=== PATIENT | female | born 1970 | race Caucasian/White ===

== ENCOUNTER 2020-01-05 08:21 | Outpatient (NON) | payer OTHER, SELFPAY ==
[2020-01-08 01:48] LABS: SARS-CoV-2 RNA PCR Negative
== END 2020-01-05 08:22 ==
DX: R06.02 Shortness of breath (principal); Z20.828 Contact with and (suspected) exposure to other viral communicable diseases
CPT/HCPCS: 87635; C9803; U0003

== ENCOUNTER → 2022-06-24 11:28 | Outpatient (CLI) | payer OTHER, SELFPAY ==
--- NOTE | ~2022-06-24 | MR_ITS ---
MRI of the right knee Clinical history: Pain Technique: Coronal proton density and proton density-weighted images, sagittal proton-density and T2 fat-sat images, and axial proton-density fat-saturated images were acquired. Findings: Anterior and posterior cruciate ligaments are intact. There is mild soft tissue edema about the MCL. Suspected partial tearing of the meniscal femoral component of the deep portion of the MCL. Lateral collateral ligament complex is intact. Popliteus tendon is intact. Medial and lateral menisci are intact. There is mild chondromalacia along the medial femoral condyle. There is minimal chondromalacia the pa tellar apex. Bone marrow signals are unremarkable. Extensor mechanism is intact. There is edema of the quadriceps fat pad. There is a ganglion cyst post erior to the medial aspect of the distal femur. This measures 2.3 cm in maximum diameter. Impression: Probable grade 2 MCL injury, as detailed above. Edematous change of the quadriceps fat pad, which could reflect impingement. 2.3 cm ganglion cyst posterior to the distal femur. Reviewed, dictated and finalized at [facility]. Impression: Probable grade 2 MCL injury, as detailed above. Edematous change of the quadriceps fat pad, which could reflect impingement. 2.3 cm ganglion cyst posterior to the distal femur.
== END ==
PROVIDERS: PCP Registered Nurse; Visit Provider Orthopaedic Surgery
DX: M67.461 Ganglion, right knee (principal)
CPT/HCPCS: 73721

== ENCOUNTER 2022-06-28 09:05 | Outpatient (CLI) | payer OTHER, SELFPAY ==
--- NOTE | ~2022-06-28 | US_ITS ---
EXAMINATION:US venous doppler LE RT INDICATION:Leg swelling. Calf pain. TECHNIQUE: Multiple grayscale, color flow and Doppler images of the right lower extremity deep venous systems were obtained and reviewed. COMPARISON:Ultrasound dated 08/10/2010 FINDINGS: The common femoral, superficial femoral and popliteal veins demonstrate normal respiratory variation, augmentation and compressibility. Color flow is also seen within the posterior tibial, pe roneal, greater saphenous and profunda veins. IMPRESSION: 1: No lower extremity deep venous thrombosis. Reviewed, dictated and finalized at location B.
== END 2022-06-28 09:06 | disposition home or self-care (01) ==
PROVIDERS: PCP Registered Nurse; Visit Provider Orthopaedic Surgery
DX: R60.0 Localized edema (principal)
CPT/HCPCS: 93971

== ENCOUNTER 2022-10-18 18:48 | Emergency (ER) | payer OTHER, SELFPAY ==
[2022-10-18 18:59] VITALS: BP 124/70; PULSE 62; RESP 16; TEMP 36.6; O2SAT 100
--- NOTE | 2022-10-18 19:05 | ED.GENADULT ---
HPI - General Adult General Chief complaint: Skin/Abscess/Foreign Body Stated complaint: RT Upper Chest Irritation Time Seen by Provider: 10/18/22 19:05 Source: patient, RN notes reviewed and old records reviewed Mode of arrival: ambulatory Limitations: no limitations History of Present Illness HPI narrative: 52-year-old female presents to the [facility] with concerns over a surgical wound. Patient had basal cell removed from the right upper chest, sutures in place. States that she was at [facility] and had some skin cancer removed from the right upper chest. Sutures are intact. Has been applying Vaseline. Reports it being itchy Denies pain. No drainage. Related Data Home Medications Medication Instructions Recorded Confirmed glycopyrrolate 9 mcg-formoterol 2 puff inhalation BID 07/02/21 10/18/22 4.8 mcg HFA aerosol inhaler (BevesZindigo Aerosphere) amitriptyline 10 mg tablet 10 mg PO HS 10/18/22 10/18/22 Allergies Allergy/AdvReac Type Severity Reaction Status Date / Time No Known Allergies Allergy Verified 10/18/22 18:56 Review of Systems Review of Systems: All systems reviewed & are unremarkable except as noted in HPI and below Constitutional: Constitutional: Reports no additional constitutional complaints Eyes: Eyes: Reports no additional eye complaints ENT: Reports system reviewed and no additional complaints, except as documented Cardiovascular: Cardiovascular: Reports no additional cardiovascular complaints, Denies chest pain and Denies dyspnea Respiratory: Respiratory: Reports no additional respiratory complaints, Denies chest congestion, Denies cough and Denies dyspnea Gastrointestinal: Gastrointestinal: Reports no additional gastrointestinal complaints, Denies abdominal pain, Denies nausea and Denies vomiting Musculoskeletal: Musculoskeletal: Reports no additional musculoskeletal complaints Integumentary/Breasts: Skin/Breast: Reports as per HPI Neurologic: Reports system reviewed and no additional complaints, except as documented Psychiatric: Psychiatric: Reports no additional psychiatric complaints Allergic/Immunologic: Allergic/Immunologic: Reports no additional allergic/immunologic complaints [facility] Past Medical History Medical History Abnormal mammogram 03-02-2016 addtional imaging asymmetric left breast/ biopsy done 02/2018 Benign seeing at [facility] every 6 months/ 09/2019 wnl specialist will order Abnormal Pap smear of cervix 20+ years ago Acid reflux Adrenal cancer Asthma Ectopic (~1994) Encounter for IUD insertion 12/01/06 Mirena insertion 10/23/11 Mirena removal/insertion 01/29/17 Mirena removal/insertion--new IUD was removed, pt having pain Encounter for IUD removal 10/23/11 Mirena removal/insertion 01/29/17 Mirena removal/insertion--new IUD was removed, pt having pain Endometriosis 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 Gestational hypertension Herpes Miscarriage (~1996) Triplet gestation 2 of 3 demise Surgical History Surgical History History of breast biopsy (03/31/18) left breast--benign History of colposcopy with cervical biopsy (~1987) History of dilation and curettage 1996 suction d&c--miscarriage History of laparoscopy 1990 endometriosis 1992 endometriosis History of left knee surgery (11/25/12) History of total adrenalectomy (~1994) dx undetermined, treated for cancer Family History Family History Grandparent Cerebrovascular accident paternal grandfather Father Malignant neoplasm of prostate Rheumatoid arthritis flare Social History Social History Smoking status: Never smoker Alcohol intake: never Substance use: never Substance use type: does not use Lack of Transporta
== END 2022-10-18 19:16 | disposition home or self-care (01) ==
PROVIDERS: Emergency Provider Nurse Practitioner; PCP Registered Nurse
DX: Z48.01 Encounter for change or removal of surgical wound dressing (principal); Z85.828 Personal history of other malignant neoplasm of skin; Z85.858 Personal history of malignant neoplasm of other endocrine glands; K21.9 Gastro-esophageal reflux disease without esophagitis; J45.909 Unspecified asthma, uncomplicated; N80.9 Endometriosis, unspecified
CPT/HCPCS: 99211; G0463

== ENCOUNTER 2023-02-21 12:35 | Outpatient (RCR) | payer OTHER, SELFPAY ==
--- NOTE | 2023-02-24 15:36 | STOPEVAL1 ---
Assessment and note entered by Martina Barbosa, INTERIOR PAINTER Assessment ST Clinical Summary VOICE EVALUATION This patient was seen for a Voice Evaluation at the request of her physician after suffering from an episode of laryngospasm with loss of breath. Patient reports a history of bulemia for several years when she was younger and a current history of gastroesophageal reflux disease along with a diagnosis of asthma. She reports that for the past 15 years, she has had random episodes of laryngospasm causing her to not be able to inhale or exhale and she fears that she may lose consciousness at some point. Patient reported that she was seen by another speech pathologist over Zoom during COVID, or approximately three years ago, who taught her to suck through a straw to break the spasm and also who taught her some exercises for vocal loudness, and she felt that sucking through the straw was helpful however she reports she has forgotten the exercises for vocal loudness. In addition to the laryngospasms, patient reports that she feels her vocal loudness is softer than an average voice and that both her and her work peers tell her they are having difficulty hearing her when she speaks. 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 Patient reported that she feels that she has to use more physical effort in order to bring her vocal loudness into what she would consider average loudness. As an aside, patient also reports that she wonders if a swallowing disorder as she reported that she has to swallow hard to get food to go down. Today the patient was given a voice evaluation. Patient's vocal quality was judged to be clear however vocal loudness was judged to be softer than expected for age and sex. She averaged 65 decibels when asked to sustain an ah sound and she averaged 68 decibels when asked to orally read a paragraph. Therapist found her to be 100% intelligible in the quiet setting of the therapy room. Conversational loudness was 68 decibels, average, which allowed for easy listener comprehension in the quiet therapy room setting.
--- NOTE | 2023-03-14 12:05 | PCSTNOTE ---
Therapist called patient yesterday, 03/13 to discuss current status. She states she has not heard from physician office or radiology scheduling; she stated she has actually called her physician twice since our initial evaluation to find out status of order and she has not heard back. She stated she would call again today. Therapist offered a visit to discuss laryngospasms however therapist also feels my research would not tell her anything she does not already know from previous ST and her own research so without MBS, no new information would be exchanged. Therapist will wait until 30 days and discharge chart at that time if no new movement has been made.
--- NOTE | 2023-04-24 09:42 | STOPDC ---
Assessment and note entered by Martina Barbosa COMPLIANCE PROFESSIONAL Evaluation Information Assessment Status Discharge - Pt Not Presen Assessment ST Clinical Summary DISCHARGE SUMMARY Patient was seen for a Speech Therapy evaluation for voice and swallowing secondary to her complaints of what seems to be laryngospasms. See initial evaluation for specific complaints and results and teaching that day. A Modified Barium Swallow study (MBS) was recommended to further assess patient's swallowing skills and patient wanted to wait to return until after the MBS was completed in order to discuss results and determine specific plan to continue. Since then, no MBS was completed due to unknown difficulty sending and receiving orders. Patient is discharged from skilled Speech Therapy at this time. She may return for swallowing therapy if indicated upon completion of the MBS. Plan of Care ST Services Indicated No
== END 2023-04-24 11:34 | disposition home or self-care (01) ==
LOC: ANHST 12:35
PROVIDERS: PCP Registered Nurse; Visit Provider Nurse Practitioner Family
DX: K21.9 Gastro-esophageal reflux disease without esophagitis (principal); R09.89 Other specified symptoms and signs involving the circulatory and respiratory systems
CPT/HCPCS: 92524

== ENCOUNTER 2023-05-06 08:23 | Outpatient (CLI) | payer OTHER, SELFPAY ==
--- NOTE | ~2023-05-06 | XR_ITS ---
MODIFIED ESOPHAGRAM HISTORY: Globus sensation TECHNIQUE: Modified barium esophagram was performed on 05/06/2023. I administered fluoroscopy and perf ormed the exam with speech pathologist. Patient was seated for lateral fluoroscopic imaging for kaitlin stion of thin liquids, pudding, solids and quantified amounts, followed by thin liquids in uncontroll ed amounts. This was recorded on tape. A single fluoroscopic spot image was also recorded. The DAP fo r this procedure was 0.446 Gycm2. The amount of fluoroscopy time used during this procedure was 0.7 m inutes. FINDINGS: Oral stage: Adequate function. Pharyngeal stage: Adequate function. Cervical/esophageal stage: Adequate function. IMPRESSION: Patient tolerated regular consistency oral feedings in the upright position. Please adal elate with speech pathologist findings and specific feeding recommendations. Reviewed, dictated and finalized at location A. IMPRESSION: Patient tolerated regular consistency oral feedings in the upright position. Please correlate with speech pathologist findings and specific feedi ng recommendations.
--- NOTE | 2023-05-06 09:04 | REHSTMBS ---
Assessment and note entered by Martina Barbosa, CAREER AGENT Modified Barium Swallow Evaluation Feeding Type Recommended Oral Food Consistency Regular, Level 7 Liquid Consistency Thin (0) ST Clinical Summary MODIFIED BARIUM SWALLOW (MBS) This patient was seen for a Modified Barium Swallow study after being seen for a Speech Therapy evaluation in February. In February, patient reported an episode of laryngospasm with loss of breath. She reported a history of bulemia for several years when she was younger and a current history of gastroesophageal reflux disease along with a diagnosis of asthma. Patient reported that for the past 15 years, she has had random episodes of laryngospasm causing her to not be able to inhale or exhale and she fears that she may lose consciousness at some point. Patient reported that she was seen by another speech pathologist over Zoom during COV, or approximately three years ago, who taught her to suck through a straw to break the spasm and also who taught her some exercises for vocal loudness, and she felt that sucking through the straw was helpful however she indicated that she has forgotten the exercises for vocal loudness. In addition to the laryngospasms, patient reported that she feels her vocal loudness is softer than an average voice and that both her and her work peers tell her they are having difficulty hearing her when she speaks. 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 Patient reported that she feels that she has to use more physical effort in order to bring her vocal loudness into what she would consider average loudness. As an aside, patient also reported that she wondered if she has a swallowing disorder as she reported that she has to swallow hard to get food to go down, therefore a MBS was requested at that time. Today the patient was viewed in the lateral position to the level of C5/C6. Patient was presented with thin liquid contrast medium per cup and per straw, one teaspoon of pudding mixed with semi-solid contrast medium, and cracker pieces coated with the pudding mixture. Patient elicited
== END 2023-05-06 08:24 | disposition home or self-care (01) ==
PROVIDERS: PCP Registered Nurse; Visit Provider Nurse Practitioner Family
DX: R09.89 Other specified symptoms and signs involving the circulatory and respiratory systems (principal)
CPT/HCPCS: 92611

== ENCOUNTER 2023-10-23 13:32 | Emergency (ER) | payer OTHER, SELFPAY ==
--- NOTE | ~2023-10-23 | CT_ITS ---
EXAMINATION: CT brain wo con DATE: 10/23/2023 14:48 INDICATION: Headache. TECHNIQUE: Computed tomography (CT) of the head was performed without intravenous contrast. The mA wa s adjusted according to patient size. Iterative reconstruction technique was employed. The dose-lengt h product was 605.33 mGy-cm. COMPARISON: None FINDINGS: There is no intracranial hemorrhage, acute infarction, or abnormal intracranial mass lesion . The ventricles are normal in size. The orbits are normal. There is a mucous retention cyst in right maxillary sinus. The mastoid air cells are normal. IMPRESSION: 1. Normal brain. Reviewed, dictated and finalized at location A. IMPRESSION: 1. Normal brain.
[2023-10-23 13:39] VITALS: BP 143/76; PULSE 87; RESP 20; TEMP 37; O2SAT 100
--- NOTE | 2023-10-23 14:24 | ED.GENADULT ---
HPI - General Adult General Chief complaint: Eye Problems Stated complaint: blurry vision Time Seen by Provider: 10/23/23 14:15 History of Present Illness HPI narrative: Patient is a 53-year-old female who presents ER with headache. Throbbing and frontal. Associated with some blurred vision while working on the computer she tried to focus with her right eye which is her good eye which helped for a little. Symptoms are worse with bright light. Recently had URI issues and was on steroids couple weeks ago. No numbness or weakness in arm or leg. No history of migraine headache. No trauma. Related Data Home Medications Medication Instructions Recorded Confirmed glycopyrrolate 9 mcg-formoterol 2 puff inhalation BID 07/02/21 08/04/23 4.8 mcg HFA aerosol inhaler (Bevespi Dinnrphere) Allergies Allergy/AdvReac Type Severity Reaction Status Date / Time No Known Allergies Allergy Verified 10/23/23 13:32 Review of Systems Review of Systems: All systems reviewed & are unremarkable except as noted in HPI and below Constitutional: Constitutional: Reports no additional constitutional complaints Cardiovascular: Cardiovascular: Reports no additional cardiovascular complaints Respiratory: Respiratory: Reports no additional respiratory complaints Gastrointestinal: Gastrointestinal: Reports no additional gastrointestinal complaints Neurologic: Reports headache(s), Denies focal weakness and Denies numbness PMFSH Past Medical History Medical History Abnormal mammogram 03-02-2016 addtional imaging asymmetric left breast/ biopsy done 02/[address] 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 Gestational hypertension Herpes Miscarriage (~1996) Triplet gestation 2 of 3 demise Surgical History Surgical History History of breast biopsy (03/31/18) left breast--benign History of colposcopy with cervical biopsy (~1987) History of dilation and curettage 1996 suction d&c--miscarriage History of laparoscopy 1990 endometriosis 1992 endometriosis History of left knee surgery (11/25/12) History of total adrenalectomy (~1994) dx undetermined, treated for cancer Status post surgical removal of malignant neoplasm of skin ~10/2022 Family History Family History Grandparent Cerebrovascular accident paternal grandfather Father Malignant neoplasm of prostate Rheumatoid arthritis flare Social History Social History Smoking status: Never smoker Alcohol intake: never Substance use: never Substance use type: does not use Lack of Transportation: No Lack of Food: Never True Current Housing: I Have Housing Concerned About Future Housing: No Difficulty Paying Gas/Electric Bills: No Difficulty Paying for Meds: No Currently Unemployed: No Education: Bachelor's Degree Difficulty w/ Childcare or Family Care: No Living arrangements: other Additional living arrangements comments: Occupation/Education: occupation 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
[2023-10-23] MEDS: SODIUM CHLORIDE 0.9% IV 1,000 ML 999 ML IV CONT (15:07)
[2023-10-23] MEDS: METOCLOPRAMIDE HCL INJ 10 MG/2 ML VIAL IV PUSH (15:08)
[2023-10-23] MEDS: diphenhydrAMINE HCl INJ 50 MG/ML VIAL 25 MG IV PUSH (15:08)
[2023-10-23] MEDS: KETOROLAC 30 MG/ML VIAL (*BKC) IV PUSH (15:09)
[2023-10-23 16:30] VITALS: BP 137/78; PULSE 78; RESP 16; O2SAT 99
== END 2023-10-23 16:30 | disposition home or self-care (01) ==
PROVIDERS: Emergency Provider Emergency Medicine; PCP Registered Nurse
DX: R51.9 Headache, unspecified (principal); M27.40 Unspecified cyst of jaw
CPT/HCPCS: 70450; 96361; 96374; 96375; 99284; J1200; J1885; J2765; J7030

== ENCOUNTER 2023-12-01 14:42 | Emergency (ER) | payer OTHER, SELFPAY ==
--- NOTE | 2023-12-01 14:47 | ED.URI ---
HPI - URI/Sore Throat General Chief Complaint: Upper Respiratory Infection Stated Complaint: cough / fever / chills Time Seen by Provider: 12/01/23 14:52 Source: patient, RN notes reviewed and old records reviewed Mode of arrival: ambulatory Limitations: no limitations History of Present Illness HPI Narrative: 53-year-old female to [facility] with complaint of body aches, productive brown/ yellow cough, chills, runny nose, scratchy throat, fever up to 101.5? since . Patient has attempted to treat at home with [id number] medications with mild relief. Patient denies difficulty swallowing, shortness of breath, pain in the chest, allergies, pertinent medical history. Patient able to tolerate fluids by mouth. Patient resting comfortably in exam room in no acute distress. Respirations even and nonlabored. Patient appears tired and acutely unwell. Related Data Home Medications Medication Instructions Recorded Confirmed glycopyrrolate 9 mcg-formoterol 2 puff inhalation BID 07/02/21 12/01/23 4.8 mcg HFA aerosol inhaler (BevesRethinkDBphere) fexofenadine 60 mg tablet 60 mg PO 24XD 12/01/23 12/01/23 ipratropium bromide 21 mcg (0.03 1 spray intranasal DIRECTED 12/01/23 12/01/23 %) nasal spray levalbuterol tartrate 45 1 puff inhalation Q6H 12/01/23 12/01/23 mcg/actuation aerosol inhaler Allergies Allergy/AdvReac Type Severity Reaction Status Date / Time No Known Allergies Allergy Verified 12/01/23 15:03 Review of Systems Review of Systems: All systems reviewed & are unremarkable except as noted in HPI and below Constitutional: Constitutional: Reports as per HPI, Reports body ache(s), Reports chills and Reports fever(s) Eyes: Eyes: Reports no additional eye complaints ENT: Reports as per HPI, Reports nasal discharge and Reports sore throat Cardiovascular: Cardiovascular: Reports no additional cardiovascular complaints, Denies chest pain and Denies dyspnea Respiratory: Respiratory: Reports no additional respiratory complaints, Reports change in phlegm color ( Brown/yellow), Reports cough and Denies dyspnea Musculoskeletal: Musculoskeletal: Reports no additional musculoskeletal complaints Neurologic: Reports system reviewed and no additional complaints, except as documented Psychiatric: Psychiatric: Reports no additional psychiatric complaints PMFSH Past Medical History Medical History Abnormal mammogram 03-02-2016 addtional imaging asymmetric left breast/ biopsy done 02/2018 Benign seeing at [facility] every 6 months/ 09/2019 wnl specialist will order Abnormal Pap smear of cervix 20+ years ago Acid reflux Adrenal cancer Asthma Ectopic (~1994) Encounter for IUD insertion 12/01/06 Mirena insertion 10/23/11 Mirena removal/insertion 01/29/17 Mirena removal/insertion--new IUD was removed, pt having pain Encounter for IUD removal 10/23/11 Mirena removal/insertion 01/29/17 Mirena removal/insertion--new IUD was removed, pt having pain Endometriosis 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 Gestational hypertension Herpes Miscarriage (~1996) Triplet gestation 2 of 3 demise Surgical History Surgical History History of breast biopsy (03/31/18) left breast--benign History of colposcopy with cervical biopsy (~1987) History of dilation and curettage 1996 suction d&c--miscarriage History of laparoscopy 1990 endometriosis 1992 endometriosis History of left knee surgery (11/25/12) History of total adrenalectomy (~1994) dx undetermined, treated for cancer Status post surgical removal of malignant neoplasm of skin ~10/2022 Family History Family History Grandparent Cerebrovascular accident paternal grandfather Father Malignant neoplasm of prostate Rheumatoid arthritis fla
[2023-12-01 15:02] VITALS: BP 112/80; PULSE 90; RESP 16; TEMP 37.1; O2SAT 100
[2023-12-01 15:05] VITALS: BP 112/80; PULSE 90; RESP 16; TEMP 37.1; O2SAT 100
[2023-12-01 15:26] LABS: EDSTREPNEGPOS1 Negative (Negative)
== END 2023-12-01 16:15 | disposition home or self-care (01) ==
PROVIDERS: Emergency Provider Nurse Practitioner Family; PCP Registered Nurse
DX: J32.9 Chronic sinusitis, unspecified (principal); K21.9 Gastro-esophageal reflux disease without esophagitis; J45.909 Unspecified asthma, uncomplicated; N80.9 Endometriosis, unspecified; Z85.858 Personal history of malignant neoplasm of other endocrine glands
CPT/HCPCS: 87081; 87880; 99213; G0463

== ENCOUNTER 2024-08-06 16:51 | Emergency (ER) | payer OTHER, SELFPAY ==
[2024-08-06 17:02] VITALS: BP 112/82; PULSE 72; RESP 18; TEMP 36.7; O2SAT 100
[2024-08-06 17:26] LABS: EDCOVIDSCREEN Negative (Negative); EDINFLUASCREEN Negative (Negative); EDINFLUBSCREEN Negative (Negative)
--- NOTE | 2024-08-06 17:40 | ED.URI ---
HPI - URI/Sore Throat General Chief Complaint: Upper Respiratory Infection Stated Complaint: Cough Time Seen by Provider: 08/06/24 17:43 Source: patient and RN notes reviewed Mode of arrival: ambulatory Limitations: no limitations History of Present Illness HPI Narrative: Patient presents today with a 2 week history of cough that has worsened over the last 5 days. She has developed some copious postnasal drainage, right ear pain, headache as well and states her cough is now productive. [place] recently [place] the country from being away for work. Denies fever, shortness of breath. History of asthma for which she uses an albuterol inhaler. She has also been using DayQuil, Tylenol, and ibuprofen with some mild relief. Related Data Home Medications ?Medication ?Instructions ?Recorded ?Confirmed ?Last Taken ?Type beclomethasone dipropionate 40 1 inh inhalation Q12H 07/16/24 08/06/24 Unknown History mcg/actuation HFA breath activated aerosol (Qvar RediHaler) Allergies Allergy/AdvReac Type Severity Reaction Status Date / Time No Known Allergies Allergy Verified 08/06/24 16:56 Review of Systems Review of Systems: CONSTITUTIONAL: Denies body aches, fever, chills, or sweats. EYES: Denies visual changes, redness, or discharge. ENT: + right ear pain, postnasal drip, sore throat CARDIOVASCULAR: Denies chest pain, palpitations, or edema. RESPIRATORY: Denies dyspnea.+ cough GASTROINTESTINAL: Denies abdominal pain, nausea, vomiting, or diarrhea. GENITOURINARY: Denies dysuria or hematuria. SKIN: Denies rash, itching, or wounds. MUSCULOSKELETAL: Denies back pain, joint pain, or myalgia. NEUROLOGIC: Denies numbness, tingling, or weakness.+ headache PSYCH: Denies depression or anxiety. 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 Abnormal mammogram 03-02-2016 addtional imaging asymmetric left breast/ biopsy done 02/2018 Benign seeing at [facility] every 6 months/ 09/2019 wnl specialist will order Encounter for IUD removal 10/23/11 Mirena removal/insertion 01/29/17 Mirena removal/insertion--new IUD was removed, pt having pain Encounter for IUD insertion 12/01/06 Mirena insertion 10/23/11 Mirena removal/insertion 01/29/17 Mirena removal/insertion--new IUD was removed, pt having pain Miscarriage (~1996) Ectopic (~1994) Endometriosis Adrenal cancer Acid reflux Gestational hypertension Herpes Abnormal Pap smear of cervix 20+ years ago Surgical History Surgical History Status post surgical removal of malignant neoplasm of skin ~10/2022 History of breast biopsy (03/31/18) left breast--benign History of left knee surgery (11/25/12) History of dilation and curettage 1996 suction d&c--miscarriage History of total adrenalectomy (~1994) dx undetermined, treated for cancer History of laparoscopy 1990 endometriosis 1992 endometriosis History of colposcopy with cervical biopsy (~1987) Family History Family History Grandparent Cerebrovascular accident paternal grandfather Father Malignant neoplasm of prostate Rheumatoid arthritis flare Social History Social History Smoking status: Never smoker Alcohol intake: never Substance use: never Substance use type: does not use Do You Feel Safe in your Home?: Yes Lack of Transportation: No Lack of Food: Never True Current Housing: Decline to Answer Concerned About Future Housing: Decline to Answer Difficulty Paying Gas/Electric Bills: Decline to Answer Difficulty Paying for Meds: Decline to Answer Currently Unemployed: Decline to Answer Education: Decline to Answer Difficulty w/ Childcare or Family Care: Decline to Answer Living arrangements: other Additional living arrangements comments: Occupation/Education: occupation 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 Please see nursing chart for further information. There is no relevant family history pertinent to the presenting complaint Exam Narrative: GENERAL: Mildly ill-appearing, well-nourished, and in no acute distress. HEAD: Normocephalic, atraumatic. EYES: EOMI. No redness or drainage. Conjunctivae normal. ENT: Mucous membranes pink and moist. Nares congested. No rhinorrhea. Right TM normal. Left TM occluded with cerumen impaction. See procedure note. Throat normal. Uvula midline. Bilateral frontal and maxillary sinus tenderness. NECK: Normal AROM. Supple. No lymphadenopathy. CHEST: No respiratory distress. Clear to auscultation. HEART: Regular rate and rhythm. No murmur appreciated. EXTREMITIES: Normal range of motion. No edema. SKIN: Warm, dry, no rash. Capillary refill normal. Normal skin turgor. NEURO: No focal deficits. Alert and oriented x3. Gait steady. PSYCH: Normal affect. No signs of depression or anxiety. Course Course Level of Care: Express Care Visit Vital Signs Vital signs: Vital Signs Temperature 98.1 F 08/06/24 17:02 Pulse Rate 72 08/06/24 17:02 Respiratory Rate 18 08/06/24 17:02 Blood Pressure 112/82 08/06/24 17:02 Pulse Oximetry 100 08/06/24 17:02 Oxygen Delivery Room Air 08/06/24 17:02 Temperature 98.1 F 08/06/24 17:02 Pulse Rate 72 08/06/24 17:02 Respiratory Rate 18 08/06/24 17:02 Blood Pressure 112/82 08/06/24 17:02 Pulse Oximetry 100 08/06/24 17:02 Oxygen Delivery Room Air 08/06/24 17:02 Reviewed Procedures Ear Wax Removal Left Ear: Ear Wax Removal Date: 08/06/24 Ear Wax Removal Time: 17:30 Cerumenolytic Used: other (Water and peroxide) Results: Re-examined: cerumen removed completely TM Examination: TM(s) intact, normal appearance Ear Canal Exam: atraumatic Patient Tolerated Procedure: well Complications: no problems Technique: ear canal irrigated and ear canal curetted MDM - URI/Sore Throat MDM Narrative Medical decision making narrative: Left cerumen impaction removed. Influenza and COVID negative. Patient will be treated for sinusitis and bronchitis with Augmentin, prednisone, and Tessalon Perles. She has been instructed to continue her albuterol inhaler if needed for her asthma. ED precautions given. Differential Diagnosis Differential diagnosis: Likely upper respiratory infection, otitis media, sinusitis, bronchitis, influenza and other (COVID-19) Lab Data Attestation: I reviewed the patient's lab results. Labs: Lab Results 08/06/24 Range/Units 17:22 POC Influenza A Ag Negative (Negative) POC Influenza B Ag Negative (Negative) POC SARS CoV-2 Ag Negative (Negative) Critical Care Time Critical Care Time Critical Care Time: No Discharge Plan Discharge Clinical Impression: Bronchitis, Left ear impacted cerumen Sinusitis Qualifiers: Sinusitis location: unspecified location Chronicity: acute Recurrence: non-recurrent Qualified Code(s): J01.90 - Acute sinusitis, unspecified Patient Disposition: Home Condition: Stable Instructions: Antibiotic Form, Sinusitis (ED), Acute Bronchitis (ED) Additional Instructions: Your COVID and influenza swabs were negative. Please take all medications as prescribed. Use your albuterol inhaler if needed for wheezing or shortness of breath. If symptoms worsen, please go to the emergency room for further evaluation and treatment. Your blood pressure was elevated above 120/80 today at Urgent Care. This puts you above the threshold for follow up. Please schedule a followup visit with your personal physician as soon as possible, for further evaluation and treatment. Even blood pressure exceeding 120/80 may indicate pre-hypertension. Patient Language: Tamazight Prescriptions: New benzonatate 200 mg capsule 200 mg PO TID PRN (Reason: cough) Qty: 20 0RF prednisone 20 mg tablet 40 mg PO DAILY 5 Days Qty: 10 0RF amoxicillin-pot clavulanate 875-125 mg tablet 1 tablet PO Q12H 7 Days Qty: 14 0RF No Action Qvar RediHaler 40 mcg/actuation HFA aerosol breath activated 1 inh inhalation Q12H estradiol-norethindrone acet [Activella] 1-0.5 mg tablet 1 tablet PO DAILY Qty: 84 1RF Follow-up/Referrals: Rut,MARVIN Quinones [Primary Care Provider] - Time of Disposition: 17:27
== END 2024-08-06 17:45 | disposition home or self-care (01) ==
PROVIDERS: Emergency Provider Nurse Practitioner; PCP Registered Nurse
DX: J40 Bronchitis, not specified as acute or chronic (principal); H61.22 Impacted cerumen, left ear; J01.90 Acute sinusitis, unspecified; Z20.822 Contact with and (suspected) exposure to COVID-19
CPT/HCPCS: 69210; 87426; 87804; 99213; G0463